=== PATIENT | female | born 1985 | race Caucasian/White ===

== ENCOUNTER 2020-02-21 19:32 | Emergency (ER) | payer OTHER ==
[~2020-02-21] VITALS: Ht 160 cm; Wt 77.1 kg
[2020-02-21 19:53] LABS: URINE BILIRUBIN NEGATIVE (Negative); URINE BLOOD NEGATIVE (Negative); URINE CLARITY CLEAR; URINE COLOR YELLOW; URINE GLUCOSE-RANDOM* NEGATIVE (Negative); URINE KETONES NEGATIVE (Negative); URINE NITRITE-REFLEX NEGATIVE (Negative); URINE PROTEIN (DIPSTICK) NEGATIVE (Negative); URINE UROBILINOGEN 0.2 E.U./dl (0.2-1.0)
[2020-02-21] MEDS ORDERED: CLONAZEPAM 0.50.5 M1 PO (19:54)
[2020-02-21] MEDS ORDERED: PROZAC40 MG PO (19:55)
[2020-02-21 19:56] LABS: URINE LEUKOCYTES-REFLEX 1+ (Negative)
[2020-02-21] MEDS ORDERED: LUVOX 50MG TABL50 MG PO (19:56)
[2020-02-21] MEDS ORDERED: LAMOTRIGINE OD100 MG PO (19:58)
[2020-02-21 20:03] LABS: SQUAMOUS 4-10 Moderate /LPF (0-3)
[2020-02-21 20:04] LABS: AMP/METHAMP Negative (Negative); BACTERIA-REFLEX >30 Many /HPF (None Seen); BARBITURATES Negative (Negative); BENZODIAZEPINES Negative (Negative); CASTS None Seen /LPF (None Seen); COCAINE Negative (Negative); CRYSTALS None Seen /LPF (None Seen); METHADONE Negative (Negative); OPIATES Negative (Negative); PCP Negative (Negative); URINE RBC 0-2 Rare /HPF (0-2); URINE WBC-REFLEX 6-15 Few /HPF (0-5)
[2020-02-21 20:31] LABS: ABSOLUTE NEUTROPHILS 2.5 thou/uL (1.4-8.2); BASOPHILS 0.7 % (0.0-2.0); EOSINOPHILS 1.8 % (0.0-3.0); HEMATOCRIT 36.2 % (37.0-47.0); HEMOGLOBIN 12.3 gm/dL (12.0-15.0); LYMPHOCYTES 39.3 % (24.0-44.0); MCH 28.9 pg (26.0-34.0); PLATELET COUNT 229 thou/uL (150-400); POLYS 49.2 % (36.0-66.0); RBC 4.27 mil/uL (4.20-5.00); RDW 13.3 % (10.5-14.5); WBC 5.1 thou/uL (4.0-11.0)
[2020-02-21 20:39] LABS: ANION GAP 12 mmol/L (7-16); BUN 8 mg/dL (7-18); CALCIUM 9.1 mg/dL (8.5-10.1); CHLORIDE 102 mmol/L (98-107); CO2 25 mmol/L (21-32); CREATININE 0.8 mg/dL (0.6-1.0); GLUCOSE 117 mg/dL (74-106); POTASSIUM 3.9 mmol/L (3.5-5.1); SODIUM 139 mmol/L (136-145)
[2020-02-21 20:44] LABS: ALBUMIN 3.7 g/dL (3.4-5.0); SALICYLATE < 2.8 mg/dL (2.8-20.0); SGOT 20 U/L (15-37); SGPT 33 U/L (30-65); TOTAL BILIRUBIN 0.1 mg/dL (0.2-1.0); TOTAL PROTEIN 7.3 g/dL (6.4-8.2)
[2020-02-22] MEDS ORDERED: LUPRON DEPOT45 MG (06:32)
[2020-02-22] MEDS ORDERED: MINIVELLE1 EAC1 (06:33)
[2020-02-22] MEDS ORDERED: ALESSE-281 EACH (06:36)
--- NOTE | 2020-02-22 08:12 | EKG ---
[facility] [place] [address] ELECTROCARDIOGRAM REPORT Name: WILFAITH Room #: REG [facility]#: [id number] Admission: 02/21/20 Attend Phys: Discharge: Date of : 85 Report #: [id number] THIS REPORT FOR: cc: FAM - No family physician/PCP FAM - No family physician/PCP Kristian Gresham MD ~ THIS REPORT FOR: //name// [facility] ED Test Date: 2020-02-21 Test Time: 20:10:52 Pat Name: FAITH DE LA TORRE Department: Room: Gender: F Deputy Director Of Nursing: CLAUS : 1985 Requested By: Addison Luo Order Number: [id number] MD: Kristian Gresham Measurements Intervals [place] Rate: 72 P: 32 NC: 152 QRS: 14 QRSD: 101 T: 29 QT: 391 QTc: 428 Interpretive Statements Sinus rhythm No previous ECG available for comparison Electronically Signed On 02-22-2020 8:12:27 CDT by Kristian Gresham [email or web address] <ELECTRONICALLY SIGNED> By: Kristian Gresham MD 02/22/2012 09 09 Kristian Gresham MD /PATRICK
[2020-02-22 21:59] VITALS: BP 110/68
== END 2020-02-22 22:00 ==
LOC: ER 19:32
PROVIDERS: Emergency Medicine
DX: T42.4X2A Poisoning by benzodiazepines, intentional self-harm, initial encounter (principal); N39.0 Urinary tract infection, site not specified; Z20.828 Contact with and (suspected) exposure to other viral communicable diseases; E66.9 Obesity, unspecified; Z79.899 Other long term (current) drug therapy; Z88.2 Allergy status to sulfonamides; Z68.30 Body mass index [BMI] 30.0-30.9, adult; Y92.89 Other specified places as the place of occurrence of the external cause

== ENCOUNTER 2020-10-02 14:33 | Emergency (ER) | payer OTHER ==
[~2020-10-02] VITALS: Ht 162.6 cm; Wt 77.1 kg
[~2020-10-02 14:33] MED LIST: ALESSE-281 EACH; CLONAZEPAM 0.50.5 M1 PO; LAMOTRIGINE OD100 MG PO; LUPRON DEPOT45 MG; LUVOX 50MG TABL50 MG PO; MINIVELLE1 EAC1; PROZAC40 MG PO
[2020-10-02 14:45] LABS: URINE BILIRUBIN NEGATIVE (Negative); URINE BLOOD NEGATIVE (Negative); URINE CLARITY CLEAR; URINE COLOR YELLOW; URINE GLUCOSE-RANDOM* NEGATIVE (Negative); URINE KETONES NEGATIVE (Negative); URINE LEUKOCYTES-REFLEX TRACE (Negative); URINE NITRITE-REFLEX NEGATIVE (Negative); URINE PROTEIN (DIPSTICK) NEGATIVE (Negative); URINE SPECIFIC GRAVITY <= 1.005 (1.005-1.035); URINE UROBILINOGEN 0.2 E.U./dl (0.2-1.0)
[2020-10-02 15:33] LABS: ABSOLUTE NEUTROPHILS 3.2 thou/uL (1.4-8.2); BASOPHILS 1.1 % (0.0-2.0); EOSINOPHILS 1.9 % (0.0-3.0); HEMATOCRIT 38.7 % (37.0-47.0); HEMOGLOBIN 13.3 gm/dL (12.0-15.0); LYMPHOCYTES 39.8 % (24.0-44.0); MCH 29.1 pg (26.0-34.0); MCHC 34.4 g/dL (28.0-37.0); MCV 84.6 fL (80.0-100.0); MONOCYTES 6.3 % (1.0-8.0); PLATELET COUNT 253 thou/uL (150-400); POLYS 50.9 % (36.0-66.0); RBC 4.57 mil/uL (4.20-5.00); RDW 13.2 % (10.5-14.5); WBC 6.2 thou/uL (4.0-11.0)
[2020-10-02 15:43] LABS: CALCIUM 8.6 mg/dL (8.5-10.1); CREATININE 0.8 mg/dL (0.6-1.0); POTASSIUM 3.9 mmol/L (3.5-5.1)
[2020-10-02 15:56] LABS: ALBUMIN 3.8 g/dL (3.4-5.0); TOTAL BILIRUBIN 0.3 mg/dL (0.2-1.0); TOTAL PROTEIN 7.2 g/dL (6.4-8.2)
[2020-10-02] MEDS ORDERED: DIFLUCAN150 M1 PO (16:04)
[2020-10-02] MEDS ORDERED: PHENAZOPYRIDIN200 M2 PO ×2 (16:04→16:13)
[2020-10-02 16:12] VITALS: BP 110/64
[2020-10-02] MEDS ORDERED: DIFLUCAN150 MG PO (16:13)
== END 2020-10-02 16:42 | disposition home or self-care (01) ==
LOC: ER 14:33
PROVIDERS: Nurse Practitioner Family
DX: R30.0 Dysuria (principal); B37.3 Candidiasis of vulva and vagina; K21.9 Gastro-esophageal reflux disease without esophagitis; E11.9 Type 2 diabetes mellitus without complications; Z88.2 Allergy status to sulfonamides